=== PATIENT | female | born 1995 | race Caucasian/White ===

== ENCOUNTER 2025-07-23 00:11 | Inpatient (IN) | payer MEDICAID, OTHER ==
[2025-07-23 04:06] LABS: INR-International Normal Ratio 1.0; PTT 25.6 sec (22.9-36.1); Prothrombin Time 13.0 sec (12.0-14.7)
[2025-07-23 04:26] LABS: Anion Gap 13 mmol/L (10-20); Carbon Dioxide 22 mmol/L (22-29); Chloride 108 mmol/L (98-107); Potassium 4.0 mmol/L (3.5-5.1); Sodium 139 mmol/L (136-145)
[2025-07-23 04:27] LABS: Albumin 3.7 g/dL (3.1-4.5); BUN (Urea Nitrogen) 11 mg/dL (7.0-18.7); Bilirubin, Total 0.1 mg/dL (0.3-1.2); Calc. Creatinine Clearance 0 mL/min (70-130); Calcium 8.5 mg/dL (7.6-10.4); Globulin 2.8 g/dL (2.4-3.5); Glucose 82 mg/dL (70-105)
[2025-07-23 04:28] LABS: ALT (SGPT) 10 U/L (Less than 34); AST (SGOT) 18 U/L (11-34); Alkaline Phosphatase 63 U/L (40-110)
[2025-07-23 04:33] LABS: BHCG - Serum Negative (NEGATIVE); Pregs Control Background? CLEAR/WHITE (CLR/WHITE); Pregs Control Bar Appear? YES (CONTROL BAR)
[2025-07-23] MEDS ORDERED: Ondansetron PF 4 MG/2 ML Vial IVP PRN (04:50)
[2025-07-23 05:18] LABS: #Basophils 0.07 10x3/uL (0.0-0.2); #Eosinophils 0.03 10x3/uL (0.0-0.7); #Monocytes 0.60 10x3/uL (0.11-0.59); #Neutrophils 7.32 10x3/uL (1.40-6.50); %Basophils 0.6 % (0.0-1.0); %Eosinophils 0.3 % (0.0-10.0); %Lymphocytes 32.1 % (21.0-51.0); %Monocytes 5.1 % (0.0-10.0); %Neutrophils 61.6 % (42.0-75.0); Hematocrit 35.2 % (36.0-47.0); Hemoglobin 11.4 g/dL (12.0-16.0); Mean Corpuscular Hemoglobin 27.5 pg (27.0-31.0); Mean Corpuscular Volume 84.8 fL (78.0-98.0); Platelet Count 353 10x3/uL (130-400); Red Blood Cell (RBC) Count 4.15 mill/uL (4.20-5.40); White Blood Cell (WBC) Count 11.85 10x3/uL (4.8-10.8)
[2025-07-23 05:29] LABS: #Basophils 0.05 10x3/uL (0.0-0.2); #Eosinophils 0.06 10x3/uL (0.0-0.7); #Monocytes 0.70 10x3/uL (0.11-0.59); #Neutrophils 9.51 10x3/uL (1.40-6.50); %Basophils 0.4 % (0.0-1.0); %Eosinophils 0.5 % (0.0-10.0); %Lymphocytes 19.7 % (21.0-51.0); %Monocytes 5.4 % (0.0-10.0); %Neutrophils 73.6 % (42.0-75.0); Hematocrit 30.9 % (36.0-47.0); Hemoglobin 10.1 g/dL (12.0-16.0); Mean Corpuscular Hemoglobin 27.8 pg (27.0-31.0); Mean Corpuscular Volume 85.1 fL (78.0-98.0); Platelet Count 327 10x3/uL (130-400); Red Blood Cell (RBC) Count 3.63 mill/uL (4.20-5.40); White Blood Cell (WBC) Count 12.91 10x3/uL (4.8-10.8)
[2025-07-23 05:30] LABS: RBC Morphology Within Normal Limits
[2025-07-23 05:36] LABS: Cardiac Risk 3.3 (Less than 4.5); Cholesterol 145 mg/dl (< 200 Desired); HDL Cholesterol 44 mg/dL (>60 Neg Risk); LDL Cholesterol, Calculated 91 mg/dL; Magnesium 2.1 mg/dL (1.6-2.6); Triglycerides 49 mg/dL (Less than 150)
[2025-07-23] MEDS ORDERED: Electrolyte Replacement Protocol 1 EACH FS SCH (05:45)
[2025-07-23 09:05] VITALS: BMI 31.0
[2025-07-23] MEDS ORDERED: Iopamidol-370 76% 500 ML MDV (1 ML CHARGE) ONE (09:20)
[2025-07-23] MEDS: Famotidine 20 MG TAB PO SCH (09:24)
[2025-07-23 11:32] LABS: Cocaine Metabolite Screen Negative (Negative); THC/Cannabinoid Screen Negative (Negative); Tricyclic Screen Negative (Negative)
[2025-07-23] MEDS: Acetaminophen 325 MG TAB PO PRN (22:24)
[2025-07-24 05:19] LABS: #Basophils 0.06 10x3/uL (0.0-0.2); #Eosinophils 0.15 10x3/uL (0.0-0.7); #Monocytes 0.62 10x3/uL (0.11-0.59); #Neutrophils 2.85 10x3/uL (1.40-6.50); %Basophils 0.8 % (0.0-1.0); %Eosinophils 2.1 % (0.0-10.0); %Lymphocytes 49.5 % (21.0-51.0); %Monocytes 8.5 % (0.0-10.0); %Neutrophils 39.0 % (42.0-75.0); Hematocrit 32.6 % (36.0-47.0); Hemoglobin 10.2 g/dL (12.0-16.0); Mean Corpuscular Hemoglobin 27.6 pg (27.0-31.0); Mean Corpuscular Volume 88.1 fL (78.0-98.0); Platelet Count 316 10x3/uL (130-400); Red Blood Cell (RBC) Count 3.70 mill/uL (4.20-5.40); White Blood Cell (WBC) Count 7.31 10x3/uL (4.8-10.8)
[2025-07-25 11:43] VITALS: BP 121/72; TEMP 98
[2025-07-26] MEDS ORDERED: FLU (Fluarix Triv) 25-26 (6MOS UP)/PF 45 MCG/0.5 ML Syringe IM ONE (11:45)
== END 2025-07-25 13:00 | disposition home or self-care (01) | DRG 313 ==
LOC: ERS 00:11 → SUATTDRO 00:11 → 2NO 07:07 → OBSVTOIN 14:45
PROVIDERS: ADMIT Student in an Organized Health Care Education/Training Program; ATTEND Internal Medicine
DX: R07.9 Chest pain, unspecified (principal); I45.5 Other specified heart block; Z88.2 Allergy status to sulfonamides; Z88.8 Allergy status to other drugs, medicaments and biological substances; Z91.040 Latex allergy status; F41.9 Anxiety disorder, unspecified; F43.10 Post-traumatic stress disorder, unspecified; D72.829 Elevated white blood cell count, unspecified; Z98.890 Other specified postprocedural states; Z98.891 History of uterine scar from previous surgery
CPT/HCPCS: 36415; 71275; 80053; 80061; 80306; 83036; 83735; 83880; 84443; 84484; 84703; 85025; 85379; 85610; 85730; 93005; 93306; 94760; G0378; J7030; Q9967